=== PATIENT | female | born 1995 | race Hispanic/Latino ===

== ENCOUNTER 2025-02-02 15:14 | Inpatient (IN) | payer BC ==
[2025-02-02 21:24] VITALS: BMI 44.9
[2025-02-02] MEDS ORDERED: Acetaminophen 500 MG TAB PO PRN (21:52)
[2025-02-02] MEDS ORDERED: HYDROcodone/Acetaminophen 5/325 mg Tablet PO PRN (21:52)
[2025-02-02] MEDS ORDERED: Tranexamic Acid 1,000 MG/10 ML VIAL IVP PRN (21:52)
[2025-02-02] MEDS ORDERED: Diphenoxylate HCl/Atropine Tablet PO PRN (21:52)
[2025-02-02] MEDS ORDERED: Ondansetron PF 4 MG/2 ML Vial IVP PRN (21:52)
[2025-02-02] MEDS ORDERED: Carboprost 250 MCG/ML AMP IM PRN (21:52)
[2025-02-02] MEDS ORDERED: Ibuprofen 800 MG TAB PO PRN (21:52)
[2025-02-02] MEDS ORDERED: Methylergonovine 0.2 MG/ML VIAL IM PRN (21:52)
[2025-02-02] MEDS ORDERED: Lidocaine 1% (PF) 30 ML VIAL SC PRN (21:52)
[2025-02-02] MEDS ORDERED: hydrALAZINE 20 MG/ML VIAL SLOW IVP PRN (21:52)
[2025-02-02] MEDS ORDERED: Oxytocin 30 units/NS 500 ML 500 ML IV SCH (22:00)
[2025-02-02 22:22] LABS: Hematocrit 33.7 % (34.9-44.5); Hemoglobin 11.4 g/dL (12.0-15.5); Mean Corpuscular Hemoglobin 29.2 pg (27.0-33.0); Mean Corpuscular Volume 86.4 fL (81.6-98.3); Platelet Count 223 10x3/uL (150-450); Red Blood Cell (RBC) Count 3.90 10x6/uL (3.90-5.03); White Blood Cell (WBC) Count 12.71 10x3/uL (3.5-10.5)
[2025-02-02 23:59] LABS: Hep B Surf Ag - L&D Non-Reactive S/CO (NonReactive)
[2025-02-03] LABS: Syphilis Antibody Index 0.07 S/CO (<1.00 Non-Reactive)
[2025-02-03] MEDS ORDERED: Ondansetron PF 4 MG/2 ML Vial IVP PRN ×2 (10:45→23:49)
[2025-02-03] MEDS ORDERED: diphenhydrAMINE 50 MG/ML VIAL IVP PRN ×2 (10:45→23:49)
[2025-02-03] MEDS ORDERED: Communication Order-Pharmacy FS SCH ×2 (10:45→23:45)
[2025-02-03] MEDS ORDERED: Acetaminophen 325 MG TAB PO PRN (10:45)
[2025-02-03] MEDS: Oxytocin 30 units/NS 500 ML 500 ML IV SCH (11:51)
[2025-02-03] MEDS: fentaNYL 2 mcg/Ropivacaine 0.2% Epidural 100 ML CADD EPIDURAL SCH (21:35)
[2025-02-03] MEDS ORDERED: Meperidine HCl/PF 25 MG (1 mL) VIAL SLOW IVP PRN (23:49)
[2025-02-04] MEDS ORDERED: Methylergonovine 0.2 MG/ML VIAL IM PRN (02:56)
[2025-02-04] MEDS ORDERED: Lanolin Ointment 7 GM TUBE TOP PRN (02:56)
[2025-02-04] MEDS ORDERED: Ondansetron PF 4 MG/2 ML Vial IVP PRN (02:56)
[2025-02-04] MEDS ORDERED: hydrALAZINE 20 MG/ML VIAL SLOW IVP PRN (02:56)
[2025-02-04] MEDS ORDERED: Oxytocin 30 units/NS 500 ML 500 ML IV SCH (02:56)
[2025-02-04] MEDS: CEFAZOLIN 2 GM VIAL ONE (03:04)
[2025-02-04] MEDS: fentaNYL/Ropivacaine Epidural 100 ML ONE (03:04)
[2025-02-04] MEDS: Azithromycin 500 MG VIAL ONE (03:04)
[2025-02-04] MEDS: Famotidine/PF 20 mg/2ml Vial ONE (03:04)
[2025-02-04] MEDS: Ketorolac Tromethamine 30 MG (1 mL) VIAL ONE (03:05)
[2025-02-04] MEDS: PHENYLEPHRINE-NS 100 MCG/ML 10 ML SYRINGE ONE (03:05)
[2025-02-04] MEDS: Oxytocin 10 UNITS/ML VIAL ONE ×2 (03:05)
[2025-02-04] MEDS: Ondansetron PF 4 MG/2 ML Vial ONE (03:05)
[2025-02-04] MEDS: Boostrix 0.5 ML (Tdap) VIAL (>/=7 yrs of age) IM ONE (04:07)
[2025-02-04] MEDS: Ketorolac Tromethamine 30 MG (1 mL) VIAL IVP PRN (04:44)
[2025-02-04 05:14] LABS: Hematocrit 31.7 % (34.9-44.5); Hemoglobin 10.6 g/dL (12.0-15.5); Mean Corpuscular Hemoglobin 29.2 pg (27.0-33.0); Mean Corpuscular Volume 87.3 fL (81.6-98.3); Platelet Count 198 10x3/uL (150-450); Red Blood Cell (RBC) Count 3.63 10x6/uL (3.90-5.03); White Blood Cell (WBC) Count 18.61 10x3/uL (3.5-10.5)
[2025-02-04] MEDS: Ondansetron PF 4 MG/2 ML Vial IVP PRN (08:55)
[2025-02-04] MEDS: Enoxaparin 40 MG (0.4 mL) SYRINGE SC SCH (11:31)
[2025-02-04] MEDS: diphenhydrAMINE 25 MG CAP PO PRN (17:10)
[2025-02-05] MEDS: HYDROcodone/Acetaminophen 5/325 mg Tablet PO PRN ×2 (00:52→19:54)
[2025-02-05] MEDS: Ibuprofen 800 MG TAB PO SCH (05:46)
[2025-02-06 07:49] VITALS: BP 118/71; TEMP 98.1
[2025-02-06] MEDS: Simethicone Chewable 80 MG TAB PO PRN (08:48)
== END 2025-02-06 14:00 | disposition home or self-care (01) | DRG 788 ==
LOC: CSHLD 21:14 → CSHPP 02-04 02:32
PROVIDERS: ADMIT Student in an Organized Health Care Education/Training Program; ATTEND Student in an Organized Health Care Education/Training Program
PROC: 10907ZC Drainage of Amniotic Fluid, Therapeutic from Products of Conception, Via Natural or Artificial Opening (ICD-10-PCS; principal; 2025-02-03)
PROC: 10D00Z1 Extraction of Products of Conception, Low, Open Approach (ICD-10-PCS; 2025-02-03)
DX: O48.0 Post-term pregnancy (principal); Z37.0 Single live birth; Z3A.40 40 weeks gestation of pregnancy; Z79.82 Long term (current) use of aspirin; Z79.899 Other long term (current) drug therapy
CPT/HCPCS: 36415; 51702; 85027; 86780; 86850; 86900; 86901; 87340; J1650; J1885; J2274; J2405; J2590; J7120